=== PATIENT | female | born 2000 | race African-American/Black ===

== ENCOUNTER → 2024-10-06 16:44 | Outpatient (CLI) | payer OTHER, SELFPAY ==
--- NOTE | 2024-10-06 16:47 | DI.MRI.S_ITS ---
PROCEDURE: MR FOOT LT WO/W CON INDICATIONS: GANGLION CYST OF FOOT TECHNIQUE: Multiphasic, multisequence MRI of the forefoot was performed, before and after intravenous contrast administration. COMPARISON: [facility] Outside Film, MR, MR FOOT LEFT WITH CONTRAST, 05/19/2024, 16:02. [facility] Outside Film, MR, MR FOOT LEFT WITHOUT CONTRAST, 04/21/2024, 16:21. FINDINGS: Image quality: Excellent. Bones and joints: No suspicious osseous enhancement. No bone marrow contusions or metatarsal stress fractures. Mild hallux valgus. The sesamoid bones appear in expected positions, without internal edema. No metatarsophalangeal joint degeneration. No intraosseous lesions. Soft tissues: Lobular enhancing mass is again seen in the musculature plantar to the metatarsal shafts. Overall size of the mass does not appear significantly changed when compared to the prior MRIs from 04/21/2024 and 05/19/2024. There is increased surrounding soft tissue edema. Mild subcutaneous scarring is seen at the plantar aspect of the foot suggesting interval instrumentation or biopsy. Included flexor and extensor tendons are intact. No ligament tearing is seen. IMPRESSION: Infiltrative enhancing soft tissue mass again seen within the foot musculature plantar to the metatarsal shafts, not significantly changed in size when compared to the MRI from 04/21/2024. Mild surrounding soft tissue edema is new when compared to the prior exam, which may be reactive versus secondary to early denervation changes. Mild scarring is seen in the plantar subcutaneous tissues suggesting interval instrumentation or biopsy, and correlation with pathologic findings is recommended if available. Imaging considerations include benign and malignant infiltrating masses such as a nonspecific lymphovascular malformation or synovial sarcoma. Approved by: Parag Isaacs M.D. on 10/09/2024 at 14:46
== END ==
PROVIDERS: Referring Provider Podiatrist; Visit Provider Podiatrist
DX: M67.479 Ganglion, unspecified ankle and foot (principal); M20.12 Hallux valgus (acquired), left foot; M79.89 Other specified soft tissue disorders
CPT/HCPCS: 73720; A9579